=== PATIENT | female | born 1975 ===

== ENCOUNTER 2017-08-12 15:11 | Emergency (ER) | payer MEDICARE, OTHER ==
[2017-08-12 15:30] VITALS: BP 132/81; PULSE 76; RESP 16; TEMP 98; O2SAT 98
--- NOTE | 2017-08-12 16:09 | C.PDOC ---
History Of Present Illness 42 year old female is brought to the ED by ambulance for evaluation of right upper arm pain which developed prior to arrival. Patient states a construction gate swung and hit her right arm, and now reports pain to the area. Patient denies complete fall, head injury, LOC, syncope, neck pain, chest pain, abd. pain, N/V, denies obvious deformity, weakness, sensory/vascular deficits to right arm. Ambulatory in Ed with stable gait, not in any apparent distress., Time Seen by Provider: 08/12/17 15:14 Chief Complaint (Nursing): Upper Extremity Problem/Injury History Per: Patient History/Exam Limitations: no limitations Onset/Duration Of Symptoms: Hrs Current Symptoms Are (Timing): Still Present Quality: "Pain" Additional History Per: Patient Past Medical History Reviewed: Historical Data, Nursing Documentation, Vital Signs Vital Signs: Last Vital Signs Temp 98 F 08/12/17 15:15 Pulse 76 08/12/17 15:15 Resp 16 08/12/17 15:15 BP 132/81 08/12/17 15:15 Pulse Ox 98 08/12/17 16:30 - Medical History PMH: No Chronic Diseases Surgical History: No Surg Hx Family History: States: Unknown Family Hx - Social History Hx Alcohol Use: No Hx Substance Use: No - Immunization History Hx Tetanus Toxoid Vaccination: No Hx Influenza Vaccination: No Hx Pneumococcal Vaccination: No Review Of Systems Cardiovascular: Negative for: Chest Pain Musculoskeletal: Positive for: Arm Pain (right). Negative for: Neck Pain, Shoulder Pain Neurological: Negative for: Weakness, Numbness Physical Exam - Physical Exam Appears: Well, Non-toxic, No Acute Distress Skin: Normal Color, Warm, Dry, No Ecchymosis Head: Atraumatic, Normacephalic Eye(s): bilateral: PERRL Ear(s): Bilateral: Normal Nose: No Flaring, No Discharge, No Deformity Oral Mucosa: Moist, No Drooling Neck: Normal ROM, Trachea Midline, No Midline Cervical Tenderness, No Paracervical Tenderness, No Step Off Deformity, Supple Chest: Symmetrical, No Deformity, No Tenderness Cardiovascular: Rhythm Regular Respiratory: No Decreased Breath Sounds, No Accessory Muscle Use, No Stridor, No Wheezing Back: No Vertebral Tenderness, No Paraspinal Tenderness Extremity: Normal ROM (RUE, no neurovascular deficits), Tenderness (right proximal humerus, no palpable defomrity, no skin changes.), Capillary Refill ( less than 2 seconds ), No Deformity, No Swelling Neurological/Psych: Oriented x3, Normal Speech, Normal Cognition, Normal Motor, Normal Sensation, Normal Reflexes ED Course And Treatment O2 Sat by Pulse Oximetry: 98 (on RA) Pulse Ox Interpretation: Normal - Other Rad Right shoulder/humerus X-Ray: Interpreted by Me, Viewed By Me Interpretation: (-) acutefx or dislocation Progress Note: Right shoulder XR and Right Humerus XR ordered and reviewed. Motrin PO administered. Shoulder sling applied by RN, checked by me. On re-eavl , pt is afebrile, hemodynamicaly stable. Non-toxic. AMbulatory in ED with stable gait. Head: AT/NC. neck: Supple, (-) midline tenderness. Lungs: CTA B/ L, BS equal B/L. Abd: benign. back: (-) midline tenderness. FAROMof RUE, no deformiy, no neurovascular deficits, no skin changes. Imaging review (-) acute fx or dislocation. Sling applied to Right arm. Pt advised. ref. to f/u with PMD, Ortho in 2-3 days for re-eavl. return if any new changes. Disposition Counseled Patient/Family Regarding: Studies Performed, Diagnosis, Need For Followup, Rx Given - Disposition Referrals: Cristino Wallace MD [Staff Provider] - Disposition: HOME/ ROUTINE Disposition Time: 15:30 Condition: STABLE Additional Instructions: take pain medication as prescribed Light duty to Right shoulder for 1 week, sling Follow up with PMD, Orthopedist in 2-3 days for re-evaluation. return if any new changes. Prescriptions: Ibuprofen [Motrin Tab] 600 mg PO TID #20 tab Instructions: Shoulder Sprain Forms: [employer] (Romansh) Print Language: POLISH - Clinical Impression Clinical Impression: Shoulder strain - PA / [employer] / Resident Statement MD/DO has reviewed & agrees with the documentation as recorded. - Scribe Statement The provider has reviewed the documentation as recorded by the Scribe (Sidra Galvez) All medical record entries made by the Scribe were at my direction and personally dictated by me. I have reviewed the chart and agree that the record accurately reflects my personal performance of the history, physical exam, medical decision making, and the department course for this patient. I have also personally directed, reviewed, and agree with the discharge instructions and disposition.
--- NOTE | 2017-08-12 16:53 | RAD ---
PROCEDURE: Radiographs of the Right Shoulder HISTORY: injury COMPARISON: Correlation made with concurrent radiographs of the right humerus FINDINGS: BONES: Normal. No fracture. JOINTS: Normal. Glenohumeral and acromioclavicular joints preserved. No osteoarthritis. SOFT TISSUES: Normal. OTHER FINDINGS: None. IMPRESSION: Normal radiographs of the right shoulder.
--- NOTE | 2017-08-12 16:54 | RAD ---
PROCEDURE: Radiographs of the right humerus. HISTORY: injury COMPARISON: Correlation made with concurrent radiographs right shoulder FINDINGS: BONES: Normal. No fracture or focal lesion. SOFT TISSUES: Normal. OTHER FINDINGS: None. IMPRESSION: Normal radiographs of right humerus.
== END 2017-08-12 16:50 | disposition home or self-care (01) ==
LOC: C.ER 15:11
DX: S46.911A Strain of unspecified muscle, fascia and tendon at shoulder and upper arm level, right arm, initial encounter (principal); W22.8XXA Striking against or struck by other objects, initial encounter